=== PATIENT | female | born 1995 | race Caucasian/White ===

== ENCOUNTER 2017-09-21 11:26 | Inpatient (IN) | payer MEDICAID ==
[~2017-09-21 11:26] MED LIST: OXYTOCIN 30 UNITS/LR 500 ML BAG IV
[2017-09-21] MEDS ORDERED: OXYTOCIN 30 UNITS/LR 500 ML IV ×2 (12:00→22:00)
[2017-09-21] MEDS ORDERED: METHYLERGONOVINE 0.2 MG INJ IM ×2 (12:00→22:00)
[2017-09-21] MEDS ORDERED: CEFAZOLIN 2 GM/50 ML (PMX) 50 ML IV (12:00)
[2017-09-21] MEDS ORDERED: MISOPROSTOL 200 MCG TAB PR ×2 (12:00→22:00)
[2017-09-21] MEDS ORDERED: CARBOPROST 250 MCG INJ IM ×2 (12:00→22:00)
[2017-09-21 13:00] LABS: ADD MAN DIFF? NO
[2017-09-21 13:02] LABS: BASOPHILS % 0.4 % (0.0-2.0); EOSINOPHILS % 0.4 % (0.0-7.0); HEMATOCRIT 36.6 % (37.0-47.0); HEMOGLOBIN 12.6 g/dl (12.0-16.0); LYMPHOCYTES # 1.3 10^3/ul (0.8-2.9); LYMPHOCYTES % 24.5 % (15.0-51.0); MEAN CORPUSCULAR HEMOGLOBIN 32.8 pg (29.0-33.0); MEAN CORPUSCULAR HGB CONC 34.4 g/dl (32.0-37.0); MEAN CORPUSCULAR VOLUME 95.3 fl (82.0-101.0); MONOCYTE # 0.3 10^3/ul (0.3-0.9); MONOCYTES % 5.8 % (0.0-11.0); NEUTROPHIL # 3.5 10^3/ul (1.6-7.5); NEUTROPHILS % 68.3 % (39.0-77.0); PLATELET COUNT 143 10^3/UL (140-415); RED BLOOD COUNT 3.84 10^6/ul (4.20-5.40)
[2017-09-21 13:02] LABS: WHITE BLOOD COUNT 5.2 10^3/ul (4.8-10.8)
[2017-09-21] MEDS: LACTATED RINGER'S 500 ML IV ×2 (13:15→13:46)
[2017-09-21 13:20] LABS: INR 0.88; PT RATIO 0.9
[2017-09-21] MEDS ORDERED: ONDANSETRON 4 MG INJ (14:15)
[2017-09-21] MEDS ORDERED: PHENYLephrine (100 MCG/ML) 5ML SYG ×3 (14:15→15:27)
[2017-09-21] MEDS ORDERED: OXYTOCIN 10 UNIT INJ (14:15)
[2017-09-21] MEDS ORDERED: morphine SULFATE/PF (10 MG/10 ML) INJ (14:15)
[2017-09-21] MEDS ORDERED: NALOXONE (0.4 MG/ML) INJ IV (15:30)
[2017-09-21] MEDS ORDERED: ONDANSETRON 4 MG INJ IV (15:30)
[2017-09-21] MEDS ORDERED: morphine 2 MG INJ IV (15:30)
[2017-09-21 15:36] LABS: RAPID PLASMA REAGIN NONREACTIVE (NR)
[2017-09-21] MEDS: OXYTOCIN 30 UNITS/LR 500 ML IV ×3 (15:54→23:48)
[2017-09-21] MEDS ORDERED: OXYCODONE/ACETAMINOPHEN (5/325) TAB PO (22:00)
[2017-09-21] MEDS ORDERED: HYDROCODONE/APAP (5/325) TAB PO (22:00)
[2017-09-21] MEDS ORDERED: LANOLIN 7 GM TUBE TOP (22:00)
[2017-09-21] MEDS: CEFAZOLIN 1 GM/50 ML (PMX) 50 ML IVPB (23:45)
[2017-09-22] MEDS: DIPHENHYDRAMINE 50 MG INJ IV (03:31)
[2017-09-22] MEDS: KETOROLAC 30 MG INJ IV ×2 (03:32→13:24)
[2017-09-22] MEDS: OXYTOCIN 30 UNITS/LR 500 ML IV (03:35)
[2017-09-22] MEDS: IBUPROFEN 600 MG TAB PO ×3 (06:00→18:15)
[2017-09-22] MEDS: LACTATED RINGER'S 1,000 ML IV (07:58)
[2017-09-22 08:38] LABS: ADD MAN DIFF? NO
[2017-09-22 08:44] LABS: WHITE BLOOD COUNT 5.3 10^3/ul (4.8-10.8)
[2017-09-22 08:44] LABS: BASOPHILS % 0.2 % (0.0-2.0); EOSINOPHILS % 0.2 % (0.0-7.0); HEMATOCRIT 34.2 % (37.0-47.0); HEMOGLOBIN 11.4 g/dl (12.0-16.0); LYMPHOCYTES # 1.3 10^3/ul (0.8-2.9); LYMPHOCYTES % 24.9 % (15.0-51.0); MEAN CORPUSCULAR HEMOGLOBIN 32.6 pg (29.0-33.0); MEAN CORPUSCULAR HGB CONC 33.3 g/dl (32.0-37.0); MEAN CORPUSCULAR VOLUME 97.7 fl (82.0-101.0); MEAN PLATELET VOLUME 9.8 fl (7.4-10.4); MONOCYTE # 0.3 10^3/ul (0.3-0.9); MONOCYTES % 6.3 % (0.0-11.0); NEUTROPHIL # 3.6 10^3/ul (1.6-7.5); NEUTROPHILS % 68.2 % (39.0-77.0); PLATELET COUNT 138 10^3/UL (140-415)
[2017-09-22] MEDS: SENNA/DOCUSATE NA (8.6MG/50MG) TAB PO ×2 (10:11→20:21)
[2017-09-22] MEDS: OXYCODONE/ACETAMINOPHEN (5/325) TAB PO (20:21)
[2017-09-23] MEDS: IBUPROFEN 600 MG TAB PO ×4 (00:13→18:11)
[2017-09-23] MEDS: INFLUENZA VIRUS VACCINE 0.5 ML SYG IM* (09:00)
[2017-09-23] MEDS: HYDROCODONE/APAP (5/325) TAB PO (10:06)
[2017-09-23] MEDS: SENNA/DOCUSATE NA (8.6MG/50MG) TAB PO ×2 (10:07→20:15)
[2017-09-23] MEDS: OXYCODONE/ACETAMINOPHEN (5/325) TAB PO (20:16)
[2017-09-24] MEDS: IBUPROFEN 600 MG TAB PO ×3 (00:33→12:01)
[2017-09-24] MEDS ORDERED: DIPHTH/TET/ACEL PERTUSS (ADULT) 0.5 ML VIAL IM* (09:00)
[2017-09-24] MEDS: SENNA/DOCUSATE NA (8.6MG/50MG) TAB PO (09:30)
== END 2017-09-24 14:47 | disposition home or self-care (01) | DRG 766 ==
LOC: L-D 11:26 → PP1 19:56
PROVIDERS: Obstetrics & Gynecology
PROC: 10D00Z1 Extraction of Products of Conception, Low, Open Approach (ICD-10-PCS; principal; 2017-09-21 14:00)
PROC: 0UL70ZZ Occlusion of Bilateral Fallopian Tubes, Open Approach (ICD-10-PCS; 2017-09-21 14:00)
PROC: 3E033VJ Introduction of Other Hormone into Peripheral Vein, Percutaneous Approach (ICD-10-PCS; 2017-09-21 14:00)
DX: O34.211 Maternal care for low transverse scar from previous cesarean delivery (principal); Z30.2 Encounter for sterilization; Z37.0 Single live birth; Z3A.39 39 weeks gestation of pregnancy
CPT/HCPCS: 85025; 85610; 85730; 86592; 86850; 86900; 86901; 88302; 90686; 90715; 94760; 99464